=== PATIENT | female | born 1990 | race American Indian/Alaskan Native ===

== ENCOUNTER 2019-04-28 03:32 | Inpatient (IN) | payer MEDICAID ==
[2019-04-28] MEDS ORDERED: BRETHINE IVP PRN (03:53)
[2019-04-28] MEDS ORDERED: MINERAL OIL PO PRN (03:53)
[2019-04-28] MEDS ORDERED: AMPICILLIN/NS 2 GM/100 ML 2 GM/100 ML BAG IV ONE (03:53)
[2019-04-28] MEDS ORDERED: XYLOCAINE 2% INFILTRATI ONE (03:53)
[2019-04-28] MEDS ORDERED: BRETHINE SUB-Q PRN (03:53)
[2019-04-28] MEDS ORDERED: SUBLIMAZE IV PRN (03:53)
[2019-04-28] MEDS ORDERED: LACTATED RINGERS 1,000 ML IV SCH (04:00)
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
[2019-04-28] MEDS: STADOL IV PRN ×2 (04:38→06:55)
[2019-04-28 05:27] LABS: Hematocrit 34.4 % (30.3-42.9); Mean Corpuscular HGB Conc 35 % (30-34); Mean Corpuscular Volume 93 fl (79-97); Platelet Count 214 K/mm3 (140-440); Red Blood Count 3.68 M/mm3 (3.65-5.03); Red Cell Distribution Width 13.3 % (13.2-15.2)
[2019-04-28] MEDS ORDERED: AMPICILLIN/NS 1 GM/50 ML 1 GM/50 ML BAG IV SCH (07:00)
--- NOTE | 2019-04-28 09:19 | Progress Note ---
Assessment and Plan - Patient Problems (1) 39 weeks gestation of Current Visit: Yes Status: Acute (2) Active labor at term Current Visit: Yes Status: Acute Plan to address problem: Continue routine labor orders AROM @ 0906, clear fluids Pain medication as desired Anticipate (3) Group B Streptococcus carrier, +RV culture, currently Current Visit: Yes Status: Acute Plan to address problem: Continue GBS prophylaxis per policy Subjective - Subjective Date of service: 04/28/19 Principal diagnosis: 39 week gestation; active labor Interval history: See admission H & P Patient reports: new complaints (Reports pain of 8/10), movement normal, contractions, no vaginal bleeding Objective - Vital Signs Vital Signs: Vital Signs - 12hr 04/28/19 04/28/19 04/28/19 05:05 05:08 06:55 Temperature 97.5 F L Pulse Rate 72 72 Respiratory 18 18 Rate Blood Pressure 112/55 Blood Pressure 112/55 [Left] 04/28/19 04/28/19 04/28/19 07:31 07:35 08:30 Temperature 98.6 F Pulse Rate 72 69 Respiratory 17 Rate Blood Pressure 127/72 137/58 Blood Pressure [Left] - Exam Breasts: deferred Cardiovascular: Regular rate Lungs: Normal air movement Abdomen: Present: other (gravid) Uterus: Present: other (S=D) FHR: category 1 Uterine Contraction Monitor Mode: External Cervical Dilatation: 8.5 Cervical Effacement Percentage: 90 station: 0 Uterine Contraction Frequency (min): 3-5 Uterine Contraction Pattern: Irregular Uterine Tone Measurement Phase: Resting Uterine Contraction Intensity: Strong/Firm Extremities: normal Deep Tendon Reflex Grade: Normal +2 - Labs Labs: Abnormal Labs 04/28/19 04:50 MCH 33 H MCHC 35 H Laboratory Results - last 24 hr 04/28/19 04/28/19 04:50 04:50 WBC 7.9 RBC 3.68 Hgb 12.0 Hct 34.4 MCV 93 MCH 33 H MCHC 35 H RDW 13.3 Plt Count 214 Blood Type O POSITIVE Antibody Screen Negative
[2019-04-28] MEDS: PITOCin/NS 20 UNIT/1000ML DRIP 20 UNITS/1,000 ML BAG IV SCH ×2 (11:23→12:20)
[2019-04-28] MEDS ORDERED: LANSINOH TP PRN (11:41)
[2019-04-28] MEDS ORDERED: MILK OF MAGNESIA PO PRN (11:41)
[2019-04-28] MEDS ORDERED: DULCOLAX PR PRN (11:41)
[2019-04-28] MEDS ORDERED: BENADRYL PO PRN (11:41)
[2019-04-28] MEDS ORDERED: ZOFRAN IV PRN (11:41)
[2019-04-28] MEDS ORDERED: PHENERGAN PO PRN (11:41)
--- NOTE | 2019-04-28 11:47 | Procedure Note ---
OB Delivery Note - Delivery Date of Delivery: 04/28/19 (1118) Surgeon: YUDY CRAIN (CNM) Estimated blood loss: 200cc - Vaginal Delivery presentation: vertex Delivery position: OA (LOT with compound hand) Intrapartum events: none Delivery induction: none Delivery augmentation: rupture of membranes Delivery monitor: external FHT, external uterine Route of delivery: Delivery placenta: spontaneous (1123) Delivery cord: 3 umbilical vessels Episiotomy: none Delivery laceration: 1st degree (perineum, no repair required, hemostasis maintained) Anesthesia: none Delivery comments: of viable male infant, cried immediately, placed directly to maternal abdomen. Cord double clamped and cut by FOB after cessation of pulsation. Placenta spontaneously delivered, disposed per hospital policy. Uterus firm @ U, positioned to right, bladder emptied with sterile catheter, returned to center, hemostasis maintained. Perineum with first degree laceration, no repair required. Mother and baby safe and stable, bonding well. - Infant A at 1 minute: 8 at 5 minutes: 9 Infant Gender: Male (Weight: 3251 gms (7lbs 3 ozs) 20 inches)
[2019-04-28] MEDS ORDERED: SODIUM CHLORIDE FLUSH SYRINGE 10 ML IV NR (12:00)
[2019-04-28] MEDS: IBUPROFEN PO SCH ×3 (12:36→23:22)
[2019-04-28] MEDS: TUCKS PAD TP PRN (14:57)
[2019-04-28] MEDS: PERCOCET 5/325 PO PRN (17:13)
[2019-04-29 00:18] LABS: Hematocrit 30.4 % (30.3-42.9); Hemoglobin 10.5 gm/dl (10.1-14.3)
[2019-04-29] MEDS: IBUPROFEN PO SCH ×2 (05:24→16:07)
[2019-04-29] MEDS ORDERED: DEPO-PROVERA (CONTRACEPTION) IM NR (10:25)
[2019-04-29] MEDS ORDERED: DERMOPLAST TP PRN (10:27)
--- NOTE | 2019-04-29 10:27 | Progress Note ---
Assessment and Plan A: PP Day #1 Stable P: Follow Routine Orders Abd Binder Depo Provera 150mg IM x 1 dose D/C Home today per patient request RTO in 6 weeks Subjective - Subjective Date of service: 04/29/19 Principal diagnosis: 39 week gestation; active labor Patient reports: appetite normal, voiding normally, pain well controlled, flatus, bowel movement, ambulating normally : doing well Objective - Vital Signs Latest vital signs: Vital Signs Temp Pulse Resp BP BP Pulse Ox 04/29/19 09:00 98.3 F 78 18 108/65 100 04/28/19 23:30 98.7 F 74 18 115/64 04/28/19 19:30 98.7 F 74 18 117/71 04/28/19 16:45 98.8 F 75 18 133/76 04/28/19 13:57 98.6 F 76 18 104/60 99 04/28/19 13:00 98.6 F 17 04/28/19 12:57 80 124/92 04/28/19 12:38 70 132/66 04/28/19 12:33 77 128/70 04/28/19 12:28 86 124/60 04/28/19 12:23 88 126/60 04/28/19 12:18 87 134/60 04/28/19 12:14 87 134/59 04/28/19 11:58 83 113/52 04/28/19 11:53 90 123/60 04/28/19 11:48 89 125/61 04/28/19 11:43 96 H 123/65 04/28/19 11:38 88 119/68 04/28/19 11:33 93 H 138/89 04/28/19 11:30 99.0 F 20 04/28/19 11:29 106 H 131/69 04/28/19 11:23 102 H 127/58 04/28/19 11:18 96 H 142/81 04/28/19 11:14 111 H 149/91 04/28/19 11:09 75 177/95 04/28/19 11:05 88 133/75 04/28/19 11:00 83 140/81 04/28/19 10:55 93 H 163/76 04/28/19 10:49 72 136/62 04/28/19 10:44 102 H 148/89 Intake and Output 04/28/19 04/29/19 04/29/19 22:59 06:59 14:59 Intake Total 980 300 Output Total 1300 Balance -320 300 Intake: Oral 680 Intake, Free Water 300 300 Output: Urine 1300 Void 1300 Other: Total, Intake Amount 320 Total, Output Amount 700 # Voids Void 1 - Exam Breasts: Present: normal Cardiovascular: Present: Regular rate Lungs: Present: Clear to auscultation, Normal air movement Abdomen: Present: normal appearance, soft, normal bowel sounds Uterus: Present: normal, firm, fundal height at umbilicus Extremities: Present: normal
--- NOTE | 2019-04-29 10:28 | Discharge Summary ---
Providers - Providers Date of Admission: 04/28/19 11:52 Date of discharge: 04/29/19 Attending physician: DAISY BLANK MD Primary care physician: DAISY BLANK MD Hospitalization Reason for admission: active labor Delivery: Episiotomy: none Laceration: 1st degree Other procedures: none complications: none Discharge diagnosis: IUP at term delivered [place] baby: male Condition at discharge: Good Disposition: DC-01 TO HOME OR SELFCARE Plan - Provider Discharge Summary Activity: routine, no sex for 6 weeks, no heavy lifting 4 weeks, no strenuous exercise Diet: routine Instructions: routine Additional instructions: [] Smoking cessation referral if applicable(refer to patient education folder for contact #) [] Refer to [facility] Booklet Call your doctor immediately for: * Fever > 100.5 * Heavy vaginal bleeding ( >1 pad per hour) * Severe persistent headache * Shortness of breath * Reddened, hot, painful area to leg or breast * Drainage or odor from incision. * Keep incision clean and dry at all times and follow doctor's instructions regarding bathing/showering - Follow up plan Follow up: DAISY BLANK MD [Primary Care Provider] - 6 Weeks
[2019-04-29] MEDS: PERCOCET 5/325 PO PRN (10:37)
[2019-04-29] MEDS: TUCKS PAD TP PRN (16:22)
[2019-04-29 17:05] VITALS: BP 116/68
== END 2019-04-29 18:12 | disposition home or self-care (01) | DRG 774 ==
LOC: TRG 03:32 → LD 03:32 → TRG 11:51 → LD 11:52 → OB 14:08
PROVIDERS: ADMIT Obstetrics & Gynecology; ATTEND Obstetrics & Gynecology
PROC: 10E0XZZ Delivery of Products of Conception, External Approach (ICD-10-PCS; principal; 2019-04-28)
PROC: 10907ZC Drainage of Amniotic Fluid, Therapeutic from Products of Conception, Via Natural or Artificial Opening (ICD-10-PCS; 2019-04-28)
DX: O99.02 Anemia complicating childbirth (principal); O98.32 Other infections with a predominantly sexual mode of transmission complicating childbirth; D64.9 Anemia, unspecified; O99.824 Streptococcus B carrier state complicating childbirth; O64.0XX0 Obstructed labor due to incomplete rotation of fetal head, not applicable or unspecified; O70.0 First degree perineal laceration during delivery; Z3A.39 39 weeks gestation of pregnancy; Z37.0 Single live birth
CPT/HCPCS: 36415; 85014; 85018; 85027; 86592; 86850; 86900; 86901; G0378; J0290; J0595; J1050; J2590; J3010